=== PATIENT | female | born 1940 | race Caucasian/White ===

== ENCOUNTER 2021-08-27 10:05 | Outpatient (CLI) | payer SELFPAY ==
[2021-08-27] MEDS ORDERED: SILVER SULFADIAZINE CREAM 25 GM TUBE ONE (10:48)
== END 2021-08-27 23:59 | disposition home health service (06) ==
LOC: WOU 10:05
PROVIDERS: ATTEND Specialist
DX: T23.201A Burn of second degree of right hand, unspecified site, initial encounter (principal); T22.232A Burn of second degree of left upper arm, initial encounter; T22.211A Burn of second degree of right forearm, initial encounter; T21.21XA Burn of second degree of chest wall, initial encounter; T31.0 Burns involving less than 10% of body surface; X15.0XXA Contact with hot stove (kitchen), initial encounter; Y93.G3 Activity, cooking and baking; Y92.009 Unspecified place in unspecified non-institutional (private) residence as the place of occurrence of the external cause
CPT/HCPCS: G0463

== ENCOUNTER 2021-09-03 11:00 | Outpatient (CLI) | payer SELFPAY | END 2021-09-03 23:59 | disposition home health service (06) | LOC: WOU 11:00 | PROVIDERS: ATTEND Specialist | DX: T23.201D Burn of second degree of right hand, unspecified site, subsequent encounter (principal); T22.232D Burn of second degree of left upper arm, subsequent encounter; T22.211D Burn of second degree of right forearm, subsequent encounter; T21.21XD Burn of second degree of chest wall, subsequent encounter; T31.0 Burns involving less than 10% of body surface; X15.0XXD Contact with hot stove (kitchen), subsequent encounter | CPT/HCPCS: 16020; A6209; G0463 ==